=== PATIENT | female | born 1975 | race Caucasian/White ===

== ENCOUNTER 2016-12-19 09:28 | Emergency (ER) | payer OTHER ==
[~2016-12-19] VITALS: Ht 167.6 cm; Wt 75.0 kg
[2016-12-19 09:31] VITALS: Ht 167.6 cm; Wt 75.0 kg
[2016-12-19] MEDS ORDERED: SOD CHLORIDE 0.9% 1,000 ML IV STA (11:09)
[2016-12-19] MEDS ORDERED: ONDANSETRON 4 MG INJ IV STA (11:09)
[2016-12-19] MEDS ORDERED: FAMOTIDINE 20 MG INJ IV STA (11:09)
[2016-12-19 11:37] LABS: ADD SCAN DIFF NO
[2016-12-19 11:43] LABS: BASOPHIL # 0.1 10^3/ul (0.0-0.1); BASOPHILS % 0.4 % (0.0-2.0); EOSINOPHILS # 0.1 10^3/ul (0.0-0.5); EOSINOPHILS % 0.8 % (0.0-7.0); HEMATOCRIT 44.4 % (37.0-47.0); HEMOGLOBIN 14.8 g/dl (12.0-16.0); LYMPHOCYTES # 1.6 10^3/ul (0.8-2.9); LYMPHOCYTES % 9.4 % (15.0-51.0); MEAN CORPUSCULAR HEMOGLOBIN 30.7 pg (29.0-33.0); MEAN CORPUSCULAR HGB CONC 33.3 g/dl (32.0-37.0); MEAN CORPUSCULAR VOLUME 92.1 fl (82.0-101.0); MEAN PLATELET VOLUME 10.5 fl (7.4-10.4); MONOCYTE # 0.8 10^3/ul (0.3-0.9); MONOCYTES % 4.6 % (0.0-11.0); NEUTROPHIL # 14.3 10^3/ul (1.6-7.5); NEUTROPHILS % 84.4 % (39.0-77.0); PLATELET COUNT 271 10^3/UL (140-415); RED BLOOD COUNT 4.82 10^6/ul (4.20-5.40); RED CELL DISTRIBUTION WIDTH 12.8 % (11.5-14.5)
[2016-12-19 11:46] LABS: ADD UMIC YES; URINE BILIRUBIN (Dip) 1+ (NEGATIVE); URINE BLOOD (Dip) 3+ (NEGATIVE); URINE COLOR RED (YELLOW); URINE GLUCOSE (Dip) NEGATIVE (NEGATIVE); URINE KETONES (Dip) NEGATIVE (NEGATIVE); URINE LEUKOCYTE ESTERASE (Dip) NEGATIVE (NEGATIVE); URINE NITRITE (Dip) NEGATIVE (NEGATIVE); URINE TOTAL PROTEIN (Dip) 2+ (NEGATIVE); URINE UROBILINOGEN (Dip) 0.2 E.U./dL (0.1-1.0)
[2016-12-19 11:51] LABS: ALBUMIN 4.4 g/dl (3.3-4.9)
[2016-12-19 11:52] LABS: POTASSIUM 3.7 mmol/L (3.5-5.1)
[2016-12-19 11:54] LABS: ALBUMIN/GLOBULIN RATIO 1.15; BILIRUBIN,INDIRECT 0.3 mg/dl (0-1.1); BILIRUBIN,TOTAL 0.3 mg/dl (0.2-1.3); CREATININE 0.62 mg/dl (0.44-1.00); TOTAL PROTEIN 8.2 g/dl (6.1-8.1)
[2016-12-19 11:55] LABS: CALCIUM 9.2 mg/dl (8.4-10.2); ICTOTEST NEGATIVE (NEGATIVE)
[2016-12-19 11:56] LABS: BACTERIA,URINE MANY; SQUAMOUS EPITHELIAL CELL,UR FEW; URINE RBCS >200 /HPF (0)
[2016-12-19] MEDS ORDERED: SOD CHLORIDE 0.9% 1,000 ML IV ONE (12:30)
[2016-12-19] MEDS ORDERED: DIPHENHYDRAMINE 50 MG INJ IV ONE (12:30)
[2016-12-19] MEDS ORDERED: METOCLOPRAMIDE 10 MG INJ IV ONE (12:30)
[2016-12-19] MEDS ORDERED: SOD CHLORIDE 0.9% 100 ML ONE (12:42)
[2016-12-19] MEDS ORDERED: IOHEXOL 300MG/ML 150 ML BTL ONE (12:42)
--- NOTE | 2016-12-19 13:13 | RADRPT ---
PROCEDURE: CT Abdomen and Pelvis with contrast. CLINICAL INDICATION: Vomiting TECHNIQUE: CT of the abdomen and pelvis was performed on a multi-detector scanner following the un complicated IV administration of 100 cc of Omnipaque 300. Coronal and sagittal images were reformat sarah from the axial data set. One or more of the following dose reduction techniques were used: auto mated exposure control, adjustment of the mA and/or kV according to patient size, use of iterative reconstruction technique. CTDI = 16.32 mGy. DLP = 967.8 mGy-cm. COMPARISON: None. FINDINGS: CT abdomen: The lung bases are clear. The heart size is normal, without pericardial effusion. Gallbladder is s urgically absent. The liver is fatty infiltrated, without evidence of focal mass. Biliary tree, pa ncreas, spleen, adrenal glands and kidneys are unremarkable. There is no urolithiasis or obstructiv e uropathy. Small hiatal hernia is noted. The stomach is otherwise grossly unremarkable. There is no abdominal aortic aneurysm or dissection. There is no retroperitoneal lymphadenopathy. The poncho hepatis region is clear. Fat-containing umbilical hernia is noted without incarceration. CT pelvis: There is mild diffuse colonic wall thickening, compatible with mild diffuse colitis. No bowel obstr uction, free intraperitoneal air or abscess is identified. No diverticulosis, diverticulitis or col itis is identified. Urinary bladder, uterus and adnexa are grossly unremarkable. No pelvic mass, f ree fluid or lymphadenopathy is identified. The surrounding osseous structures are unremarkable. No osteolytic or osteoblastic lesion is detect ed. IMPRESSION: 1. Findings compatible with mild diffuse colitis, as above. 2. Gallbladder is surgically absent. 3. Hepatic steatosis is noted. 4. Small hiatal hernia is present. 5. Fat-containing umbilical hernia is noted without incarceration. 6. No mass or lymphadenopathy is identified. RPTAT: EE .Trip Rendon MD, MD Date Time Electronically viewed and signed by .Trip Rendon MD, MD on 12/19/2016 13:12 .R/
[2016-12-19] MEDS ORDERED: MECLIZINE 12.5 MG TAB PO ONE (13:30)
[2016-12-19 15:02] LABS: BARBITURATES Negative (NEGATIVE); BENZODIAZEPINES Negative (NEGATIVE); CANNABINOIDS Negative (NEGATIVE); COCAINE Negative (NEGATIVE); OPIATES Negative (NEGATIVE)
[2016-12-19] MEDS ORDERED: CIPR500T4 PO (15:28)
[2016-12-19] MEDS ORDERED: ONDA4TAB14 PO (15:28)
[2016-12-19] MEDS ORDERED: FAMO-18 PO (15:28)
[2016-12-19] MEDS ORDERED: METR500T PO (15:28)
[2016-12-19] MEDS ORDERED: LORAZEPAM 2 MG INJ IV ONE (16:00)
[2016-12-19 17:07] VITALS: BP 116/66; PULSE 76; RESP 18; TEMP 98.1
--- NOTE | 2016-12-19 17:53 | ERD ---
ER Documentation Chief Complaint Date/Time DATE: 12/19/16 TIME: 17:43 Chief Complaint vomiting since this am also dizzy HPI 41-year-old female with no significant past medical history presents to the ED complaining of vomiting that started 8 hours ago. Reports that she is currently on her menses. She that she has had 4 episodes of nonbilious nonbloody vomiting. Denies any abdominal pain, chest pain, shortness of breath , wheezing, fever, cough, rhinorrhea, diarrhea, headache. Patient reports that she slightly feels dizzy. Denies any weakness, seizures, numbness or tingling. Reports that the dizziness is positional. States that she feels dizzy when she gets out of her seat. ROS All systems reviewed and are negative except as per history of present illness. Medications Home Meds Active Scripts Metronidazole* (Flagyl*) 500 Mg Tablet, 500 MG PO TID for 10 Days, TAB Prov:RICHA TUCKER PA-C 12/19/16 Ciprofloxacin Hcl* (Ciprofloxacin Hcl*) 500 Mg Tablet, 500 MG PO BID for 10 Days , TAB Prov:RICHA TUCKER PA-C 12/19/16 Famotidine* (Pepcid*) 20 Mg Tablet, 20 MG PO BID for 4 Days, #30 TAB Prov:RICHA TUCKER PA-C 12/19/16 Ondansetron (Ondansetron Odt) 4 Mg Tab.rapdis, 4 MG PO Q6H Y for NAUSEA AND/OR VOMITING, #30 TAB Prov:RICHA TUCKER PA-C 12/19/16 Allergies Allergies: Coded Allergies: No Known Allergy (Unverified , 12/19/16) PMhx/Soc Medical and Surgical Hx: pt denies Medical Hx, pt denies Surgical Hx Hx Alcohol Use: No Hx Substance Use: No Hx Tobacco Use: No Physical Exam Vitals Vital Signs Date Time Temp Pulse Resp B/P Pulse Ox O2 Delivery O2 Flow Rate FiO2 12/19/16 17:07 98.1 76 18 116/66 98 Room Air 12/19/16 15:35 76 19 108/64 98 Room Air 12/19/16 10:27 97.7 80 18 108/56 99 Room Air 12/19/16 09:31 97.7 81 18 108/67 99 Physical Exam Const: [id number], well-nourished. In no acute distress. Head: Atraumatic, normocephalic Eyes: Normal Conjunctiva without injection. No purulent discharge. ENT: Normal external ear, nose. Moist oropharynx without tonsillar exudates. Non -erythematous pharynx. Uvula midline. No drooling. No trismus. Neck: No cervical midline tenderness. Full range of motion. No meningismus. No cervical lymphadenopathy. No JVD. Resp: Clear to auscultation bilaterally. No wheezing, rhonchi, rales, or crackles. No accessory muscle use. No retractions. Cardio: Regular rate and rhythm. No murmurs, rubs or gallops. Abd: Soft, slight left upper quadrant tenderness, non distended. Normal bowel sounds. No palpable masses. No rebound tenderness. No guarding. Negative McBurney's point. Negative psoas sign. Negative obturator sign. Skin: No petechiae or rashes Back: No midline tenderness. No CVA tenderness. Ext: No cyanosis, or edema. Neur: Awake and alert. Normal gait. Normal coordination. Psych: Normal Mood and Affect Result Diagram: 12/19/16 1120 12/19/16 1120 Results 24 hrs Laboratory Tests Test 12/19/16 11:20 12/19/16 14:00 White Blood Count 17.010^3/ul Red Blood Count 4.8210^6/ul Hemoglobin 14.8g/dl Hematocrit 44.4% Mean Corpuscular Volume 92.1fl Mean Corpuscular Hemoglobin 30.7pg Mean Corpuscular Hemoglobin Concent 33.3g/dl Red Cell Distribution Width 12.8% Platelet Count 32774^3/UL Mean Platelet Volume 10.5fl Neutrophils % 84.4% Lymphocytes % 9.4% Monocytes % 4.6% Eosinophils % 0.8% Basophils % 0.4% Nucleated Red Blood Cells % 0.0/100WBC Neutrophils # 14.310^3/ul Lymphocytes # 1.610^3/ul Monocytes # 0.810^3/ul Eosinophils # 0.110^3/ul Basophils # 0.110^3/ul Nucleated Red Blood Cells # 0.010^3/ul Urine Color RED Urine Clarity CLOUDY Urine pH 5.0 Urine Specific [place] >=1.030 Urine Ketones NEGATIVE Urine Nitrite NEGATIVE Urine Bilirubin 1+ Urine Ictotest NEGATIVE Urine Urobilinogen 0.2 E.U./dL Urine Leukocyte Esterase NEGATIVE Urine Microscopic RBC >200/HPF Urine Microscopic WBC 2-5/HPF Urine Squamous Epithelial Cells FEW Urine Bacteria MANY Urine Hemoglobin 3+ Urine Glucose NEGATIVE% Urine Total Protein 2+ Sodium Level 140mmol/L Potassium Level 3.7mmol/L Chloride Level 102mmol/L Carbon Dioxide Level 26mmol/L Anion Gap 16 Blood Urea Nitrogen 15mg/dl Creatinine 0.62mg/dl Glucose Level 113mg/dl Calcium Level 9.2mg/dl Total Bilirubin 0.3mg/dl Direct Bilirubin 0.00mg/dl Indirect Bilirubin 0.3mg/dl Aspartate Amino Transf (AST/SGOT) 27IU/L Alanine Aminotransferase (ALT/SGPT) 38IU/L Alkaline Phosphatase 81IU/L Troponin I < 0.010ng/ml Total Protein 8.2g/dl Albumin 4.4g/dl Globulin 3.80g/dl Albumin/Globulin Ratio 1.15 Lipase 71U/L Urine Opiates Screen Negative Urine Barbiturates Negative Urine Amphetamines Screen Negative Urine Benzodiazepines Screen Negative Urine Cocaine Screen Negative Urine Cannabinoids Negative Current Medications Medications (Trade) Dose Ordered Sig/Cody Route PRN Reason Start Time Stop Time Status Last Admin Dose Admin Sodium Chloride (NS) 1,000 ml @ 1,000 mls/hr Q1H STAT IV 12/19/16 11:09 12/19/16 12:08 DC 12/19/16 11:27 Ondansetron HCl (Zofran Inj) 4 mg ONCE STAT IV 12/19/16 11:09 12/19/16 11:11 DC 12/19/16 11:27 Famotidine (Pepcid Iv) 20 mg ONCE STAT IV 12/19/16 11:09 12/19/16 11:11 DC 12/19/16 11:27 Metoclopramide HCl (Reglan) 10 mg ONCE ONCE IV 12/19/16 12:30 12/19/16 12:31 DC 12/19/16 12:21 Diphenhydramine HCl 25 mg 25 mg ONCE ONCE IV 12/19/16 12:30 12/19/16 12:31 DC 12/19/16 12:35 Sodium Chloride (NS) 1,000 ml @ 1,000 mls/hr Q1H ONCE IV 12/19/16 12:30 12/19/16 13:29 DC 12/19/16 12:35 IV Flush 10 ml 10 ml STK-MED ONCE .ROUTE 12/19/16 12:42 12/19/16 12:43 DC 12/19/16 13:10 Sodium Chloride (NS) 100 ml @ ud STK-MED ONCE .ROUTE 12/19/16 12:42 12/19/16 12:43 DC 12/19/16 13:10 Iohexol (Omnipaque 300mg/ ml) 150 ml STK-MED ONCE .ROUTE 12/19/16 12:42 12/19/16 12:43 DC 12/19/16 13:11 Meclizine HCl (Antivert) 25 mg ONCE ONCE PO 12/19/16 13:30 12/19/16 13:31 DC 12/19/16 13:23 Lorazepam (Ativan) 1 mg ONCE ONCE IV 12/19/16 16:00 12/19/16 16:09 DC 12/19/16 15:42 Procedures/MDM This is a 41-year-old female comes to the ED complaining of vomiting and abdominal pain. Patient is afebrile and nontoxic-appearing. Patient has normal vital signs. Patient was further worked up with CBC, CMP, lipase, UA, urine . 4 mg IV morphine, 10 mg IV Reglan, 25 mg IV Benadryl was ordered to further treat patient however patient was still noted to be vomiting. This was discussed with my supervising physician, Dr. Medellin. We both agreed to further workup patient with a CT of the abdomen and pelvis with contrast, troponin, EKG, urine drug screen. CBC: No leukocytosis. No e/o of systemic infection. No e/o anemia. CMP: No e/o severe acidosis, alkalosis, renal failure, diabetic ketoacidosis, liver disease Lipase within normal limits. Urine: No leukocyte esterase, no nitrites, no hematuria. Urine : Negative Negative urine drug screen. PROCEDURE: CT Abdomen and Pelvis with contrast. CLINICAL INDICATION: Vomiting TECHNIQUE: CT of the abdomen and pelvis was performed on a multi-detector scanner following the uncomplicated IV administration of 100 cc of Omnipaque 300. Coronal and sagittal images were reformatted from the axial data set. One or more of the following dose reduction techniques were used: automated exposure control, adjustment of the mA and/or kV according to patient size, use of iterative reconstruction technique. CTDI = 16.32 mGy. DLP = 967.8 mGy- cm. COMPARISON: None. FINDINGS: CT abdomen: The lung bases are clear. The heart size is normal, without pericardial effusion. Gallbladder is surgically absent. The liver is fatty infiltrated, without evidence of focal mass. Biliary tree, pancreas, spleen, adrenal glands and kidneys are unremarkable. There is no urolithiasis or obstructive uropathy. Small hiatal hernia is noted. The stomach is otherwise grossly unremarkable. There is no abdominal aortic aneurysm or dissection. There is no retroperitoneal lymphadenopathy. The poncho hepatis region is clear. Fat- containing umbilical hernia is noted without incarceration. CT pelvis: There is mild diffuse colonic wall thickening, compatible with mild diffuse colitis. No bowel obstruction, free intraperitoneal air or abscess is identified. No diverticulosis, diverticulitis or colitis is identified. Urinary bladder, uterus and adnexa are grossly unremarkable. No pelvic mass, free fluid or lymphadenopathy is identified. The surrounding osseous structures are unremarkable. No osteolytic or osteoblastic lesion is detected. IMPRESSION: 1. Findings compatible with mild diffuse colitis, as above. 2. Gallbladder is surgically absent. 3. Hepatic steatosis is noted. 4. Small hiatal hernia is present. 5. Fat-containing umbilical hernia is noted without incarceration. 6. No mass or lymphadenopathy is identified. EKG reviewed and interpreted by Dr. Bagley Rate/Rhythm: [92 bpm, Normal Sinus Rhythm] No ectopy, no ST elevations, normal axis. QRS, ST, T-waves: [No changes consistent w/ acute ischemia] Impression: [No evidence of ischemia or arrhythmia] Patient symptoms likely be due to colitis. Patient will be covered in case it is a bacterial etiology. Low suspicion for acute myocardial infarction, pneumothorax, pneumonia, cardiac tamponade, pulmonary embolism, AAA, aortic dissection, Boerhaave's syndrome, cardiac dysrhythmias,meningitis, intracranial bleed, seizure, stroke, TIA or other emergent conditions. A differential diagnosis considered includes but is not limited to gastritis, GERD, peptic ulcer disease, cholecystitis, choledocholithiasis, cholangitis, pancreatitis, appendicitis, bowel obstruction, ileus, volvulus, nephrolithiasis, pyelonephritis, hepatitis, perforated viscus, diverticulitis, abdominal hernia, acute abdomen, mesenteric ischemia or other emergent conditions. This case was discussed with my supervising physician, Dr. Cheo martínez. Patient is no longer vomiting here in the ED after being treated with 1 mg Ativan. He recommended the following treatment with Flagyl and Cipro if patient's symptoms do not improve in 2 days. Patient will also be given a course of Pepcid and Zofran. Discharge medications: Flagyl, Cipro Pepcid, Zofran Follow up with primary care physician in 1-2 days for referral to textiles printer. Instructed patient to return to the ED sooner for any worsening symptoms. Patient's questions were answered. Patient understood and agreed with discharge plan. Patient discharged stable. Departure Diagnosis: Primary Impression: Vomiting Vomiting type: unspecified Vomiting Intractability: unspecified Nausea presence: unspecified Qualified Code: R11.10 - Vomiting, intractability of vomiting not specified, presence of nausea not specified, unspecified vomiting type Additional Impression: Colitis Condition: Stable Patient Instructions: Nausea and Vomiting-Adult Referrals: [facility] Usted se baker hecho un examen mdico de control que le indica que no est en beverly condicin que requiera tratamiento urgente en el Departamento de Emergencia. Un estudio ms profundo y el tratamiento de chacon condicin pueden esperar sin ningn riesgo hasta que usted sea atendida/o en el consultorio de chacon mdico o beverly cl richardson. Es responsabilidad suya arreglar beverly satish para el seguimiento del khari. MANEJO DE CONDICIONES NO URGENTES EN EL FUTURO 1) Si usted tiene un mdico de atencin primaria: Usted debera llamar a chacon mdico de atencin primaria antes de venir al departamento de emergencia. Despus de las horas de consultorio, chacon doctor o chacon asociado/a est disponible por telfono. El mdico o enfermero de debora en el servicio telefnico puede asesorarle por caroline medio para atender el problema, o khari contrario se puede programar beverly satish. 2) Si usted no tiene un mdico de atencin primaria: Llame al mdico o clnica de referencia que aparece abajo hermelindo las horas de consultorio para hacer beverly satish para que le vean. CLINICAS: [facility] [phone] [facility] [phone] [facility] [phone] [place] [phone] [place] [address] [phone] [facility]. [phone] [address] [facility] () Usted se baker hecho un examen mdico de control que le indica que no est en beverly condicin que requiera tratamiento urgente en el Departamento de Emergencia. Un estudio ms profundo y el tratamiento de chacon condicin pueden esperar sin ningn riesgo hasta que usted sea atendida/o en el consultorio de chacon mdico o beverly cl richardson. Es responsabilidad suya arreglar beverly satish para el seguimiento del khari. MANEJO DE CONDICIONES NO URGENTES EN EL FUTURO 1) Si usted tiene un mdico de atencin primaria: Usted debera llamar a chacon mdico de atencin primaria antes de venir al departamento de emergencia. Despus de las horas de consultorio, chacon doctor o chacon asociado/a est disponible por telfono. El mdico o enfermero de debora en el servicio telefnico puede asesorarle por caroline medio para atender el problema, o khari contrario se puede programar beverly satish. 2) Si usted no tiene un mdico de atencin primaria: Llame al mdico o condado institucions de referencia que aparece abajo hermelindo las horas de consultorio para hacer beverly satish para que le vean. SI USTED NO PUEDE PAGAR PARA LORI UN MEDICO puede ir a: [facility] [address] [place] [address] [facility] [address] [place] [address] [facility] [address] [place] [address] [facility] [address] [place] [address] Additional Instructions: Llame al doctor MAANA y daylin beverly SATISH PARA DENTRO DE 1-2 RING.Dgale a la secretaria que nosotros le instruimos hacer esta satish.Avise o llame si chacon condicin se empeora antes de la satish. Regresa aqui si peor o no mejor. RICHA TUCKER PA-C Dec 19, 2016 17:52
== END 2016-12-19 17:10 | disposition home or self-care (01) ==
LOC: FTE 09:28
DX: R11.10 Vomiting, unspecified (principal); K52.9 Noninfective gastroenteritis and colitis, unspecified; R42 Dizziness and giddiness
CPT/HCPCS: 36415; 74177; 80053; 80307; 81001; 81003; 83690; 84484; 85025; 93005; 96361; 96374; 96375; J1200; J2060; J2405; J2765; J7030; Q9967; Z7502; Z7610